=== PATIENT | female | born 1970 | race Caucasian/White ===

== ENCOUNTER 2017-06-15 15:15 | Inpatient (IN) | payer OTHER, MEDICARE ==
[~2017-06-15] VITALS: Ht 160 cm; Wt 107.8 kg
[~2017-06-15 15:15] MED LIST: COUM1TAB PO; NEXI40CA PO; ZOFR4TAB3 SL
[2017-06-15 15:48] VITALS: BP 141/76; PULSE 77; RESP 18; TEMP 98.1; O2SAT 100
[2017-06-15 17:17] VITALS: BP 153/96; PULSE 93; RESP 20; TEMP 98.2; O2SAT 96
--- NOTE | 2017-06-15 17:17 | PD ---
HPI Chief Complaint: Psychiatric Symptoms Time Seen by Provider: 16:00 Travel History International Travel<30 days: No Contact w/Intl Traveler<30days: No Traveled to known affect area: No History of Present Illness HPI 47-year-old female that presents to the ED for evaluation of Brooks act. Patient was Brooks acted by police after apparently she got out of class today and mentioned to her professor that she was suicidal and depressed. Police was called for her own safety and she was taken to [facility]. [facility] muscle would not take her because she takes Coumadin for a blood clot in her right leg. She states compliance with the medications that she takes. She denies any other medical issues. She states that she's had depression and anxiety for some time but she has never seen anybody for it or taken anything for it. She denies any prior Brooks acts. She denies any substance abuse. She states that there is nothing actively causing the symptoms worse but she states that his been going for some time. She denies any actual plan to me but per Brooks act she wanted to kill herself by walking into traffic. She denies any other medical issues. No fevers chills or sweats. PFSH Past Medical History Hx Anticoagulant Therapy: Yes Hiatal Hernia: Yes Past Surgical History Cholecystectomy: Yes Hysterectomy: Yes Social History Alcohol Use: No Tobacco Use: Yes Substance Use: No Allergies-Medications (Allergen,Severity, Reaction): Coded Allergies: Iodinated Contrast- Oral and IV Dye (Verified Allergy, Severe, 05/02/17) iodine (Verified Allergy, Severe, 05/02/17) Reported Meds & Prescriptions Reported Meds & Active Scripts Active Reported Warfarin 2.5 Mg Tab 2.5 Mg PO DAILY Review of Systems Except as stated in HPI: all other systems reviewed are Neg Physical Exam Narrative GENERAL: SKIN: Warm and dry. HEAD: Atraumatic. Normocephalic. EYES: Pupils equal and round. No scleral icterus. No injection or drainage. ENT: No nasal bleeding or discharge. Mucous membranes pink and moist. Tongue is midline. No uvula deviation. NECK: Trachea midline. No JVD. CARDIOVASCULAR: Regular rate and rhythm. No murmurs, S3, S4. RESPIRATORY: No accessory muscle use. Clear to auscultation. Breath sounds equal bilaterally. GASTROINTESTINAL: Abdomen soft, non-tender, nondistended. Hepatic and splenic margins not palpable. MUSCULOSKELETAL: Extremities without clubbing, cyanosis, or edema. No obvious deformities. Full range of motion of the upper and lower extremities bilaterally. 2+ pulses bilaterally. NEUROLOGICAL: Awake and alert. No obvious cranial nerve deficits. Motor grossly within normal limits. Five out of 5 muscle strength in the arms and legs. Normal speech. PSYCHIATRIC: Appropriate mood and affect; insight and judgment normal. Data Data Last Documented VS Vital Signs Date Time Temp Pulse Resp B/P (MAP) Pulse Ox O2 Delivery O2 Flow Rate FiO2 06/15/17 17:17 98.2 93 20 153/96 (115) 96 Orders Orders Complete Blood Count With Diff (06/15/17 16:00) Comprehensive Metabolic Panel (06/15/17 16:00) Psych Screen (06/15/17 16:00) Drug Screen, Random Urine (06/15/17 16:00) Alcohol (Ethanol) (06/15/17 16:00) Salicylates (Aspirin) (06/15/17 16:00) Tylenol (Acetaminophen) (06/15/17 16:00) Diet Regular Basic (06/15/17 Dinner) Coag Profile (06/15/17 16:19) Prothrombin Time / Inr (Pt) (06/15/17 17:33) Labs Laboratory Tests Test 06/15/17 17:30 06/15/17 17:40 White Blood Count 9.4 TH/MM3 Red Blood Count 5.41 MIL/MM3 Hemoglobin 15.6 GM/DL Hematocrit 45.9 % Mean Corpuscular Volume 84.9 FL Mean Corpuscular Hemoglobin 28.8 PG Mean Corpuscular Hemoglobin Concent 33.9 % Red Cell Distribution Width 14.3 % Platelet Count 216 TH/MM3 Mean Platelet Volume 10.0 FL Neutrophils (%) (Auto) 67.7 % Lymphocytes (%) (Auto) 22.4 % Monocytes (%) (Auto) 7.3 % Eosinophils (%) (Auto) 1.7 % Basophils (%) (Auto) 0.9 % Neutrophils # (Auto) 6.3 TH/MM3 Lymphocytes # (Auto) 2.1 TH/MM3 Monocytes # (Auto) 0.7 TH/MM3 Eosinophils # (Auto) 0.2 TH/MM3 Basophils # (Auto) 0.1 TH/MM3 CBC Comment DIFF FINAL Differential Comment Prothrombin Time 12.1 SEC Prothromb Time International Ratio 1.1 RATIO Activated Partial Thromboplast Time 28.8 SEC Blood Urea Nitrogen 14 MG/DL Creatinine 0.85 MG/DL Random Glucose 114 MG/DL Total Protein 8.3 GM/DL Albumin 3.9 GM/DL Calcium Level 9.5 MG/DL Alkaline Phosphatase 115 U/L Aspartate Amino Transf (AST/SGOT) 27 U/L Alanine Aminotransferase (ALT/SGPT) 48 U/L Total Bilirubin 0.5 MG/DL Sodium Level 140 MEQ/L Potassium Level 3.9 MEQ/L Chloride Level 104 MEQ/L Carbon Dioxide Level 29.5 MEQ/L Anion Gap 7 MEQ/L Estimat Glomerular Filtration Rate 72 ML/MIN Acetaminophen Level LESS THAN 2.0 MCG/ML Ethyl Alcohol Level LESS THAN 3 MG/DL Urine Opiates Screen NEG Urine Barbiturates Screen NEG Urine Amphetamines Screen NEG Urine Benzodiazepines Screen NEG Urine Cocaine Screen NEG Urine Cannabinoids Screen NEG MDM Medical Decision Making Medical Screen Exam Complete: Yes Emergency Medical Condition: Yes Medical Record Reviewed: Yes Interpretation(s) CBC & BMP Diagram 06/15/17 17:30 Total Protein 8.3 H, Albumin 3.9, Calcium Level 9.5, Alkaline Phosphatase 115, Aspartate Amino Transf (AST/SGOT) 27, Alanine Aminotransferase (ALT/SGPT) 48, Total Bilirubin 0.5 tox negative Differential Diagnosis Depression versus suicidal ideation versus anxiety versus adjustment disorder versus mood disorder versus bipolar disorder versus schizophrenia versus paranoid disorder versus psychosis versus substance abuse versus alcohol abuse versus alcohol induced psychosis versus homicidality addition versus cutting versus personality disorder Narrative Course 47-year-old female that presents to the ED for evaluation of psych. Patient was properly examined and was found to have signs and symptoms consistent with appears to be psychiatric illness. No significant medical distress. Labs were drawn. Patient will be medically cleared. Okay to be seen by psych. Mental health screening was discussed with the patient. Diagnosis Primary Impression: Depression Qualified Codes: F32.1 - Major depressive disorder, single episode, moderate Miguel Stack Jun 15, 2017 17:17
[2017-06-15] MEDS ORDERED: WARF-18 PO (17:25)
[2017-06-15 18:05] LABS: AUTOMATED NEUTROPHIL # 6.3 TH/MM3 (1.8-7.7); BASOPHIL # 0.1 TH/MM3 (0-0.2); BASOPHIL % 0.9 % (0.0-2.0); EOSINOPHIL # 0.2 TH/MM3 (0-0.4); EOSINOPHIL % 1.7 % (0.0-4.0); HEMATOCRIT 45.9 % (35.0-46.0); HEMO FLAGS DIFF FINAL; LYMPH % 22.4 % (9.0-44.0); LYMPHOCYTE # 2.1 TH/MM3 (1.0-4.8); MEAN CELL VOLUME 84.9 FL (80.0-100.0); MEAN CORPUSCULAR HEMOGLOBIN 28.8 PG (27.0-34.0); MEAN CORPUSCULAR HGB CONC 33.9 % (32.0-36.0); MONO % 7.3 % (0.0-8.0); NEUT % 67.7 % (16.0-70.0); PLATELET COUNT 216 TH/MM3 (150-450); RED BLOOD COUNT 5.41 MIL/MM3 (4.00-5.30); RED CELL DISTRIBUTION WIDTH 14.3 % (11.6-17.2); WHITE BLOOD COUNT 9.4 TH/MM3 (4.0-11.0)
[2017-06-15 18:26] LABS: ALT (GPT) 48 U/L (10-53); ANION GAP 7 MEQ/L (5-15); AST (GOT) 27 U/L (15-37); BICARBONATE 29.5 MEQ/L (21.0-32.0); BLOOD UREA NITROGEN 14 MG/DL (7-18); CHLORIDE 104 MEQ/L (98-107); GLOMERULAR FILTRATION RATE 72 ML/MIN (>89); POTASSIUM 3.9 MEQ/L (3.5-5.1); SODIUM (NA) 140 MEQ/L (136-145)
[2017-06-15 18:27] LABS: TOTAL BILIRUBIN ADULT 0.5 MG/DL (0.2-1.0)
[2017-06-15 18:28] LABS: ALKALINE PHOSPHATASE 115 U/L (45-117)
[2017-06-15 18:46] LABS: ACETAMINOPHEN LESS THAN 2.0 MCG/ML (10.0-30.0); ALCOHOL LESS THAN 3 MG/DL (0-5)
[2017-06-15 19:06] LABS: APTT (PATIENT) 28.8 SEC (24.3-30.1); INTERNATIONAL NORMALIZED RATIO 1.1 RATIO; PROTHROMBIN TIME - PATIENT 12.1 SEC (9.8-11.6)
[2017-06-15] MEDS ORDERED: ONDANSETRON ODT 4 MG TAB PO ONE (21:00)
[2017-06-15] MEDS ORDERED: ACETAMINOPHEN 325 MG TAB PO ONE (21:00)
[2017-06-15] MEDS ORDERED: hydrOXYzine HCL 50 MG TAB PO PRN (21:45)
[2017-06-15] MEDS ORDERED: traZODone HCL 50 MG TAB PO PRN (21:45)
[2017-06-15] MEDS ORDERED: MAGNESIUM HYDROXIDE SUSP 30 ML CUP PO PRN (21:45)
[2017-06-15] MEDS ORDERED: ALUMINUM/MAGNESIUM/SIMETH 30 ML CUP PO PRN (21:45)
[2017-06-15] MEDS ORDERED: ACETAMINOPHEN 325 MG TAB PO PRN (21:45)
[2017-06-15 22:32] VITALS: BP 148/86; PULSE 66; RESP 12
[2017-06-15 22:45] VITALS: BP 161/74; PULSE 74; RESP 16; TEMP 98.2; O2SAT 95
[2017-06-16 05:53] VITALS: BP 115/60; PULSE 61; RESP 18; TEMP 97.8; O2SAT 97
[2017-06-16] MEDS: REMOVE OLD PATCH T-DERMAL SCH (09:00)
[2017-06-16] MEDS: NICOTINE 21 MG/24 HR PATCH T-DERMAL SCH (09:00)
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
[2017-06-16] MEDS: SERTRALINE HCL 50 MG TAB PO SCH (14:45)
[2017-06-16] MEDS ORDERED: WARFARIN SOD 2.5 MG TAB PO SCH (16:00)
[2017-06-16 18:43] VITALS: BP 120/65; PULSE 68; RESP 18; TEMP 98; O2SAT 97
[2017-06-16 20:34] LABS: INTERNATIONAL NORMALIZED RATIO 1.1 RATIO; PROTHROMBIN TIME - PATIENT 12.3 SEC (9.8-11.6)
[2017-06-16 20:38] LABS: ANION GAP 6 MEQ/L (5-15); BLOOD UREA NITROGEN 12 MG/DL (7-18); CHLORIDE 102 MEQ/L (98-107); GLOMERULAR FILTRATION RATE 96 ML/MIN (>89); POTASSIUM 3.9 MEQ/L (3.5-5.1); SODIUM (NA) 138 MEQ/L (136-145)
[2017-06-16 20:49] LABS: HDL CHOLESTEROL 46.8 MG/DL (40.0-60.0); LDL CHOLESTEROL 89 MG/DL (0-99)
[2017-06-16 21:32] LABS: HEMOGLOBIN A1a 0.8 %; HEMOGLOBIN A1b 1.5 %; HEMOGLOBIN Ao 85.8 %; HEMOGLOBIN LA1C 2.1 %; HEMOGLOBIN P3 3.5 %
[2017-06-17 06:09] VITALS: BP 159/97; PULSE 61; RESP 18; TEMP 97.4
[2017-06-17] MEDS: REMOVE OLD PATCH T-DERMAL SCH (09:00)
[2017-06-17] MEDS: NICOTINE 21 MG/24 HR PATCH T-DERMAL SCH (09:00)
[2017-06-17] MEDS: SERTRALINE HCL 50 MG TAB PO SCH (09:00)
[2017-06-17] MEDS ORDERED: INFLUENZA VIRUS VACCINE (QUADRIVALENT) 0.5 ML SYR IM ONE (10:00)
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
--- NOTE | 2017-06-17 14:49 | HHI.PYPN ---
Subjective Remarks Patient seen for follow-up, chart reviewed. Patient found lying in hospital bed , calm and cooperative in interview. Patient states that she had had recent divorce no cyanosis ideations prior to her admission. Patient states that she had been feeling "a little better, happier marley". But reports having "stomach problems". Patient stated that she had been vomiting 3-4 times since admission daily occurs after eating but also recalls that she had similar episodes where she was previously depressed. She states that the [place] recent started to occur within the past 1-2 months and questions whether she has bulimia due to her wanting to lose weight. Patient reports that most the time she is having nausea prior to her emesis and reports that she was previously on pantoprazole in the past which had helped prevent further nausea or vomiting. Patient is a her mood has been "on and off" since her admission continues to feel depressed, and less having suicidal ideations 2 days ago and currently denies at this time. Review of Systems Except as stated in HPI: all other systems reviewed are Neg Mental Status Examination Appearance: Appropriate Consciousness: Alert Orientation: x4 Motor Activity: Normal gait Speech: Slow Language: Adequate Fund of Knowledge: Adequate Attention and Concentration: Adequate Memory: Unremarkable (Grossly intact on clinical exam) Mood: Sad, Other (Depressed, anxious) Affect: Sad Thought Process & Associations: Logical, Linear Thought Content: Appropriate Hallucination Type: Visual ("shadows") Delusion Type: None Suicidal Ideation: Yes (fleeting) Suicidal Plan: No Suicidal Intention: No Homicidal Ideation: No Homicidal Plan: No Homicidal Intention: No Insight: Adequate Judgment: Adequate Results Labs Labs reviewed. Test 06/16/17 19:28 Prothrombin Time 12.3 SEC Prothromb Time International Ratio 1.1 RATIO Blood Urea Nitrogen 12 MG/DL Creatinine 0.66 MG/DL Random Glucose 108 MG/DL Calcium Level 9.3 MG/DL Sodium Level 138 MEQ/L Potassium Level 3.9 MEQ/L Chloride Level 102 MEQ/L Carbon Dioxide Level 30.0 MEQ/L Anion Gap 6 MEQ/L Estimat Glomerular Filtration Rate 96 ML/MIN Hemoglobin A1c 5.8 % Triglycerides Level 139 MG/DL Cholesterol Level 164 MG/DL LDL Cholesterol 89 MG/DL HDL Cholesterol 46.8 MG/DL Cholesterol/HDL Ratio 3.50 RATIO Thyroid Stimulating Hormone 3rd Gen 0.525 uIU/ML Vitals/IOs Vital Signs Date Time Temp Pulse Resp B/P (MAP) Pulse Ox O2 Delivery O2 Flow Rate FiO2 06/17/17 06:09 97.4 61 18 159/97 (117) 06/16/17 18:43 97 06/15/17 22:32 Room Air Assessment & Plan Problem List: (1) Adjustment disorder ICD Codes: F43.20 - Adjustment disorder, unspecified Assessment & Plan Patient continues to endorse feeling depressed but denied any recurrence of suicidal ideations for the past 2 days. We'll consider increasing sertraline the patient continues to have limited response but for now we'll continue at 50 mg she has only had 2 doses. Will order labs due to patient's history of recent vomiting. Patient may have GERD which could be contributing to her nausea post meals and causing her to have emesis. We'll consult with primary medical team for recommendations. Discharge planning in progress Justification for Cont. Inpt. At risk for further decompensation if at lower level of care Discharge Planning Patient likely be able to return back to her residence with psychiatric history stable Request HC Surrog/Guard Advoc?: No Problem Qualifiers (1) Adjustment disorder: Qualified Codes: F43.23 - Adjustment disorder with mixed anxiety and depressed mood Job Prince MD Jun 17, 2017 14:49
[2017-06-17] MEDS: WARFARIN SOD 5 MG TAB PO SCH (16:00)
[2017-06-17 18:00] VITALS: BP 163/89; PULSE 76; RESP 18; TEMP 98.9; O2SAT 94
[2017-06-17 21:30] LABS: BICARBONATE 26.4 MEQ/L (21.0-32.0); POTASSIUM 3.8 MEQ/L (3.5-5.1)
[2017-06-18 05:36] VITALS: BP 133/68; PULSE 64; RESP 16; TEMP 98.1; O2SAT 93
[2017-06-18] MEDS: SERTRALINE HCL 50 MG TAB PO SCH (08:38)
[2017-06-18] MEDS: PANTOPRAZOLE SOD 40 MG DELAYED RELEASE TAB PO SCH (08:38)
[2017-06-18] MEDS: NICOTINE 21 MG/24 HR PATCH T-DERMAL SCH (08:39)
[2017-06-18] MEDS: REMOVE OLD PATCH T-DERMAL SCH (08:39)
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
[2017-06-18] MEDS: WARFARIN SOD 5 MG TAB PO SCH (16:08)
--- NOTE | 2017-06-18 16:27 | HHI.PYPN ---
Subjective Remarks Patient seen for follow-up, chart reviewed. Patient found walking on the unit was able to engage in interview today. Patient stated this feeling "better" noted to be pleased that she was able to wear her casual clothing now. Patient states that she has not eaten well since Thursday reports having difficulty sleeping and also states that she has been vomiting about 10 times since yesterday. Patient states that she is afraid to eat because of fear of wanting to vomit after. Patient also reports having some constipation. Patient noted to be very tearful about having to eat consistent meals with fear of wanting to vomit after. We'll discuss with patient and self good hydration and good nutrition which she knowledge. Review of Systems Except as stated in HPI: all other systems reviewed are Neg Mental Status Examination Appearance: Appropriate Consciousness: Alert Orientation: x4 Motor Activity: Normal gait Speech: Unremarkable Language: Adequate Fund of Knowledge: Adequate Attention and Concentration: Adequate Memory: Unremarkable (Grossly intact on clinical exam) Mood: Sad, Other (Depressed, anxious) Affect: Sad, Other (noted to be crying on 1 occasion during interview.) Thought Process & Associations: Logical, Linear Thought Content: Appropriate Hallucination Type: Visual ("shadows") Delusion Type: None Suicidal Ideation: Yes (fleeting) Suicidal Plan: No Suicidal Intention: No Homicidal Ideation: No Homicidal Plan: No Homicidal Intention: No Insight: Adequate Judgment: Adequate Results Labs Test 06/17/17 20:40 Blood Urea Nitrogen 8 MG/DL Creatinine 0.58 MG/DL Random Glucose 94 MG/DL Calcium Level 9.3 MG/DL Sodium Level 137 MEQ/L Potassium Level 3.8 MEQ/L Chloride Level 103 MEQ/L Carbon Dioxide Level 26.4 MEQ/L Anion Gap 8 MEQ/L Estimat Glomerular Filtration Rate 112 ML/MIN Vitals/IOs Vital Signs Date Time Temp Pulse Resp B/P (MAP) Pulse Ox O2 Delivery O2 Flow Rate FiO2 06/18/17 05:36 98.1 64 16 133/68 (89) 93 06/15/17 22:32 Room Air Assessment & Plan Problem List: (1) Adjustment disorder ICD Codes: F43.20 - Adjustment disorder, unspecified Assessment & Plan Patient continues to have depressed mood along with vague suicidality. Patient encouraged to maintain good hydration and nutrition on the unit. Patient be followed by medical team for poor oral intake as well as emesis. Will order a nutritional consult due to poor oral intake. We'll increase sertraline to 75 mg by mouth daily and have trazodone 50 mg by mouth at bedtime on a scheduled basis. We'll start clonazepam 0.5 mg by mouth every 12 for anxiety symptoms. Discharge planning in progress Justification for Cont. Inpt. At risk for further decompensation if at lower level of care Discharge Planning Patient likely to return back to her residence once psychiatrically stable. Request HC Surrog/Guard Advoc?: No Problem Qualifiers (1) Adjustment disorder: Qualified Codes: F43.23 - Adjustment disorder with mixed anxiety and depressed mood Job Prince MD Jun 18, 2017 16:27
[2017-06-18] MEDS ORDERED: PILL SPLITTER OTHER PRN (16:30)
[2017-06-18] MEDS: traZODone HCL 50 MG TAB PO SCH ×2 (16:55→21:47)
[2017-06-18 16:56] VITALS: BP 144/66; PULSE 87; RESP 17; TEMP 98.9; O2SAT 95
[2017-06-18] MEDS: clonazePAM 0.5 MG TAB PO SCH (21:47)
[2017-06-19 06:35] VITALS: BP 134/60; PULSE 61; RESP 18; TEMP 97.5; O2SAT 95
[2017-06-19] MEDS: PANTOPRAZOLE SOD 40 MG DELAYED RELEASE TAB PO SCH (08:24)
[2017-06-19] MEDS: NICOTINE 21 MG/24 HR PATCH T-DERMAL SCH (08:25)
[2017-06-19] MEDS: REMOVE OLD PATCH T-DERMAL SCH (08:25)
[2017-06-19] MEDS: clonazePAM 0.5 MG TAB PO SCH ×2 (08:25→20:22)
[2017-06-19] MEDS ORDERED: SERTRALINE HCL 50 MG TAB PO SCH (09:00)
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
--- NOTE | 2017-06-19 13:14 | HHI.PYPN ---
Subjective Remarks Patient seen for follow-up, chart reviewed. Patient found participating in group activities. Patient states that she is feeling "good", eating more but still having nausea after eating. She states feeling less nauseous "alot better ", denies any SI, more energy. She states that she was visited by her ex- which went well. Review of Systems Except as stated in HPI: all other systems reviewed are Neg Mental Status Examination Appearance: Appropriate Consciousness: Alert Orientation: x4 Motor Activity: Normal gait Speech: Unremarkable Language: Adequate Fund of Knowledge: Adequate Attention and Concentration: Adequate Memory: Unremarkable (Grossly intact on clinical exam) Mood: Sad (less so today), Anxious (less so today) Affect: Sad (less today) Thought Process & Associations: Logical, Linear Thought Content: Appropriate Hallucination Type: Visual ("shadows") Delusion Type: None Suicidal Ideation: No Suicidal Plan: No Suicidal Intention: No Homicidal Ideation: No Homicidal Plan: No Homicidal Intention: No Insight: Adequate Judgment: Adequate Results Vitals/IOs Vital Signs Date Time Temp Pulse Resp B/P (MAP) Pulse Ox O2 Delivery O2 Flow Rate FiO2 06/19/17 06:35 97.5 61 18 134/60 (84) 95 06/15/17 22:32 Room Air Assessment & Plan Problem List: (1) Adjustment disorder ICD Codes: F43.20 - Adjustment disorder, unspecified Assessment & Plan Patient continues to have depressed mood with some improvement and less suicide ideations. Will increase sertraline to 100mg PO daily. Continue to monitor for emesis and PO intake. Discharge planning in progress. Justification for Cont. Inpt. At risk for further decompensation if at lower level of care. Discharge Planning Patient to go back to her residence once psychiatrically stable. Request HC Surrog/Guard Advoc?: No Problem Qualifiers (1) Adjustment disorder: Qualified Codes: F43.23 - Adjustment disorder with mixed anxiety and depressed mood Job Prince MD Jun 19, 2017 13:14
[2017-06-19 15:57] LABS: INTERNATIONAL NORMALIZED RATIO 1.4 RATIO; PROTHROMBIN TIME - PATIENT 15.6 SEC (9.8-11.6)
[2017-06-19] MEDS: WARFARIN SOD 5 MG TAB PO SCH (15:57)
[2017-06-19 18:14] VITALS: BP 104/54; PULSE 78; RESP 18; TEMP 99.3; O2SAT 97
[2017-06-19] MEDS: traZODone HCL 50 MG TAB PO SCH (20:22)
[2017-06-20 05:31] VITALS: BP 123/60; PULSE 70; RESP 18; TEMP 97.6; O2SAT 95
[2017-06-20 07:49] LABS: INTERNATIONAL NORMALIZED RATIO 1.6 RATIO; PROTHROMBIN TIME - PATIENT 17.8 SEC (9.8-11.6)
[2017-06-20] MEDS: SERTRALINE HCL 50 MG TAB PO SCH (09:00)
[2017-06-20] MEDS: REMOVE OLD PATCH T-DERMAL SCH (09:00)
[2017-06-20] MEDS: NICOTINE 21 MG/24 HR PATCH T-DERMAL SCH (09:00)
[2017-06-20] MEDS: PANTOPRAZOLE SOD 40 MG DELAYED RELEASE TAB PO SCH (09:00)
[2017-06-20] MEDS: clonazePAM 0.5 MG TAB PO SCH ×2 (09:00→21:10)
--- NOTE | 2017-06-20 14:46 | HHI.PYPN ---
Subjective Remarks Patient was seen and case discussed with nursing. Patient is irritable loud and oppositional. Affect is at times labile and later constricted. She is adamant been going home. We discussed the process and she was offered a right of release. Compliant with medications and tolerating them well Mental Status Examination Appearance: Appropriate Consciousness: Alert Orientation: x4 Motor Activity: Normal gait Speech: Unremarkable Language: Adequate Fund of Knowledge: Adequate Attention and Concentration: Adequate Memory: Unremarkable (Grossly intact on clinical exam) Mood: Sad (less so today), Anxious (less so today) Affect: Labile, Blunt, Other (irritable) Thought Process & Associations: Logical, Linear Thought Content: Appropriate Hallucination Type: Visual ("shadows") Delusion Type: None Suicidal Ideation: No Suicidal Plan: No Suicidal Intention: No Homicidal Ideation: No Homicidal Plan: No Homicidal Intention: No Insight: Adequate Judgment: Adequate Results Labs Test 06/20/17 06:30 Prothrombin Time 17.8 SEC Prothromb Time International Ratio 1.6 RATIO Vitals/IOs Vital Signs Date Time Temp Pulse Resp B/P (MAP) Pulse Ox O2 Delivery O2 Flow Rate FiO2 06/20/17 05:31 97.6 70 18 123/60 (81) 95 Assessment & Plan Problem List: (1) Adjustment disorder ICD Codes: F43.20 - Adjustment disorder, unspecified Assessment & Plan Continue current treatment plan Justification for Cont. Inpt. Patient would decompensate in a less restrictive setting Request HC Surrog/Guard Advoc?: No Problem Qualifiers (1) Adjustment disorder: Qualified Codes: F43.23 - Adjustment disorder with mixed anxiety and depressed mood Rito Dover DO Jun 20, 2017 14:46
[2017-06-20] MEDS: WARFARIN SOD 5 MG TAB PO SCH (17:28)
[2017-06-20] MEDS: traZODone HCL 50 MG TAB PO SCH (21:10)
[2017-06-21 05:37] VITALS: BP 146/61; PULSE 61; RESP 18; TEMP 98; O2SAT 92
[2017-06-21] MEDS: PANTOPRAZOLE SOD 40 MG DELAYED RELEASE TAB PO SCH (08:31)
[2017-06-21] MEDS: SERTRALINE HCL 50 MG TAB PO SCH (08:31)
[2017-06-21] MEDS: clonazePAM 0.5 MG TAB PO SCH ×2 (08:31→21:24)
[2017-06-21] MEDS: REMOVE OLD PATCH T-DERMAL SCH (09:00)
[2017-06-21] MEDS: NICOTINE 21 MG/24 HR PATCH T-DERMAL SCH (09:00)
--- NOTE | 2017-06-21 12:13 | HHI.PYPN ---
Subjective Remarks She was seen and case discussed with nursing. Patient has had nausea throughout the day with mild abdominal pain for the past couple of days. Patient had been followed by medicine. She threw up once this morning. Patient remains labile and perseverative on going home. Insight remains poor Mental Status Examination Appearance: Appropriate Consciousness: Alert Orientation: x4 Motor Activity: Normal gait Speech: Unremarkable Language: Adequate Fund of Knowledge: Adequate Attention and Concentration: Adequate Memory: Unremarkable (Grossly intact on clinical exam) Mood: Sad (less so today), Anxious (less so today) Affect: Sad, Blunt, Other (irritable) Thought Process & Associations: Logical, Linear Thought Content: Appropriate Hallucination Type: Visual ("shadows") Delusion Type: None Suicidal Ideation: No Suicidal Plan: No Suicidal Intention: No Homicidal Ideation: No Homicidal Plan: No Homicidal Intention: No Insight: Poor Judgment: Poor Results Vitals/IOs Vital Signs Date Time Temp Pulse Resp B/P (MAP) Pulse Ox O2 Delivery O2 Flow Rate FiO2 06/21/17 05:37 98.0 61 18 146/61 (89) 92 Assessment & Plan Problem List: (1) Adjustment disorder ICD Codes: F43.20 - Adjustment disorder, unspecified Assessment & Plan One time dose of Zofran, if vomiting continues, we'll consult medicine, vitals every 6 hours Justification for Cont. Inpt. Patient would decompensate in a less restrictive setting Request HC Surrog/Guard Advoc?: No Problem Qualifiers (1) Adjustment disorder: Qualified Codes: F43.23 - Adjustment disorder with mixed anxiety and depressed mood Rito Dover DO Jun 21, 2017 12:13
[2017-06-21] MEDS ORDERED: ONDANSETRON HCL 4 MG/2 ML VIAL IV PUSH ONE (12:30)
[2017-06-21 12:41] VITALS: BP 143/70; PULSE 73
[2017-06-21] MEDS ORDERED: ONDANSETRON HCL 4 MG/2 ML VIAL IM ONE (12:45)
[2017-06-21 16:48] VITALS: BP 139/76; PULSE 62; RESP 18; TEMP 98; O2SAT 95
[2017-06-21 17:20] LABS: INTERNATIONAL NORMALIZED RATIO 1.8 RATIO; PROTHROMBIN TIME - PATIENT 20.4 SEC (9.8-11.6)
[2017-06-21] MEDS: WARFARIN SOD 5 MG TAB PO SCH (17:23)
[2017-06-21] MEDS: traZODone HCL 50 MG TAB PO SCH (21:24)
[2017-06-22 01:00] VITALS: BP 125/79; PULSE 60; RESP 16; TEMP 97.9; O2SAT 93
[2017-06-22 06:15] VITALS: BP 120/78; PULSE 64; RESP 16; TEMP 98; O2SAT 92
[2017-06-22] MEDS: clonazePAM 0.5 MG TAB PO SCH (08:40)
[2017-06-22] MEDS: PANTOPRAZOLE SOD 40 MG DELAYED RELEASE TAB PO SCH (08:40)
[2017-06-22] MEDS: SERTRALINE HCL 50 MG TAB PO SCH (08:40)
[2017-06-22] MEDS: NICOTINE 21 MG/24 HR PATCH T-DERMAL SCH (08:42)
[2017-06-22] MEDS: REMOVE OLD PATCH T-DERMAL SCH (08:42)
[2017-06-22] MEDS ORDERED: CLON.5 PO (12:32)
[2017-06-22] MEDS ORDERED: SERT-129 PO (12:32)
[2017-06-22] MEDS ORDERED: COUM5TAB PO (12:32)
[2017-06-22] MEDS ORDERED: PANT40TA3 PO (12:32)
[2017-06-22] MEDS ORDERED: TRAZ50TA12 PO (12:32)
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
== END 2017-06-22 14:58 | disposition home or self-care (01) | DRG 885 ==
LOC: NEDAMB 15:15 → NEDA 21:46 → H260 22:47
PROVIDERS: ADMIT Student in an Organized Health Care Education/Training Program; ATTEND Student in an Organized Health Care Education/Training Program
DX: F32.2 Major depressive disorder, single episode, severe without psychotic features (principal); R45.851 Suicidal ideations; F43.23 Adjustment disorder with mixed anxiety and depressed mood; F17.210 Nicotine dependence, cigarettes, uncomplicated; R11.2 Nausea with vomiting, unspecified; F43.0 Acute stress reaction; K21.9 Gastro-esophageal reflux disease without esophagitis; Z86.718 Personal history of other venous thrombosis and embolism; Z79.01 Long term (current) use of anticoagulants; Z91.14 Patient's other noncompliance with medication regimen
CPT/HCPCS: 80048; 80053; 80061; 80307; 83036; 84443; 84703; 85025; 85610; 85730; J2405

== ENCOUNTER 2017-09-14 12:38 | Emergency (ER) | payer OTHER, MEDICARE ==
[~2017-09-14] VITALS: Ht 157.5 cm; Wt 91.0 kg
[~2017-09-14 12:38] MED LIST changes: +CARA1TAB6 PO; +CLON.5 PO; -COUM1TAB PO; +COUM5TAB PO; +FAMO1TAB37 PO; -NEXI40CA PO; +PANT40TA3 PO; +SERT-129 PO; +TRAZ50TA12 PO; +WARF-18 PO; -ZOFR4TAB3 SL
[2017-09-14 12:43] VITALS: BP 122/62; PULSE 79; RESP 16; TEMP 98.3; O2SAT 97
--- NOTE | 2017-09-14 14:02 | PD ---
HPI Chief Complaint: Psychiatric Symptoms Time Seen by Provider: 13:48 Travel History International Travel<30 days: No Contact w/Intl Traveler<30days: No Traveled to known affect area: No History of Present Illness HPI 47 year old female presents to the emergency department under [place] act by local police. Patient was seen earlier at the [facility] for hematemesis. She was medically cleared. It appears that afterwards, she was Brooks acted and was taken to [facility]. She reports no further hematemesis or vomiting since being seen earlier. [facility] sent her here because she is on Coumadin for chronic DVT for 2 years. They state that is beyond their scope of practice. The patient states that her boyfriend got kicked out of his mother's house and he moved in with her. His mother called his geological technical officer who she told him he had to move back in with his mother or he be taken [place]. The patient was moving out this morning when the patient became agitated and upset and threatened to kill her self. Patient states she no longer has any suicidal thoughts. She denies any attempt to hurt herself at this time. Moderate severity. PFSH Past Medical History Hx Anticoagulant Therapy: Yes Arthritis: No Asthma: No Anxiety: Yes Depression: Yes Heart Rhythm Problems: No Cancer: No Cardiovascular Problems: No High Cholesterol: No Chest Pain: No Congestive Heart Failure: No COPD: No Cerebrovascular Accident: No Diminished Hearing: No Deep Vein Thrombosis: Yes Endocrine: No Genitourinary: No Hiatal Hernia: Yes Immune Disorder: No Musculoskeletal: Yes Neurologic: No Psychiatric: No Reproductive: No Respiratory: No Immunizations Current: Yes Migraines: No Seizures: No Sleep Apnea: No ?: Not Tubal Ligation: Yes Past Surgical History Abdominal Surgery: Yes Cardiac Surgery: No Cholecystectomy: Yes Ear Surgery: No Endocrine Surgery: No Eye Surgery: No Genitourinary Surgery: No Gynecologic Surgery: Yes Hysterectomy: Yes Oral Surgery: No Thoracic Surgery: No Social History Alcohol Use: Yes Tobacco Use: No Substance Use: No Allergies-Medications (Allergen,Severity, Reaction): Coded Allergies: Iodinated Contrast- Oral and IV Dye (Verified Allergy, Severe, 09/14/17) iodine (Verified Allergy, Severe, 09/14/17) Reported Meds & Prescriptions Reported Meds & Active Scripts Active Carafate (Sucralfate) 1 Gram Tab 1 Gm PO QID On empty stomach Pepcid (Famotidine) 20 Mg Tab 20 Mg PO BID Pantoprazole (Pantoprazole Sodium) 40 Mg Tab 40 Mg PO DAILY 30 Days Trazodone (Trazodone HCl) 50 Mg Tab 50 Mg PO HS PRN 15 Days Sertraline (Sertraline HCl) 100 Mg Tab 100 Mg PO DAILY Klonopin (Clonazepam) 0.5 Mg Tab 0.5 Mg PO Q12HR 30 Days Coumadin (Warfarin) 5 Mg Tab 5 Mg PO DAILY@1600 30 Days Reported Warfarin 2.5 Mg Tab 2.5 Mg PO DAILY Review of Systems Except as stated in HPI: all other systems reviewed are Neg Physical Exam Narrative GENERAL: Well-nourished, well-developed female patient, ambulatory. Afebrile. SKIN: Focused skin assessment warm/dry. HEAD: Normocephalic. Atraumatic. EYES: No scleral icterus. No injection or drainage. NECK: Supple, trachea midline. No JVD or lymphadenopathy. CARDIOVASCULAR: Regular rate and rhythm without murmurs, gallops, or rubs. RESPIRATORY: Breath sounds equal bilaterally. No accessory muscle use. Lungs sounds are clear to auscultation. GASTROINTESTINAL: Abdomen soft, non-tender, nondistended. MUSCULOSKELETAL: No cyanosis, or edema. BACK: Nontender without obvious deformity. No CVA tenderness. PSYCHIATRIC: No delusional thought processes. No hallucinations. Data Data Last Documented VS Vital Signs Date Time Temp Pulse Resp B/P (MAP) Pulse Ox O2 Delivery O2 Flow Rate FiO2 09/14/17 12:43 98.3 79 16 122/62 (82) 97 Orders Orders Prothrombin Time / Inr (Pt) (09/14/17 13:56) Drug Screen, Random Urine (09/14/17 13:56) Alcohol (Ethanol) (09/14/17 13:56) Psych Screen (09/14/17 13:56) Labs Laboratory Tests Test 09/14/17 14:15 09/14/17 14:16 Prothrombin Time 10.8 SEC Prothromb Time International Ratio 1.1 RATIO Ethyl Alcohol Level LESS THAN 3 MG/DL Urine Opiates Screen NEG Urine Barbiturates Screen NEG Urine Amphetamines Screen NEG Urine Benzodiazepines Screen NEG Urine Cocaine Screen NEG Urine Cannabinoids Screen NEG MDM Medical Decision Making Medical Screen Exam Complete: Yes Emergency Medical Condition: Yes Medical Record Reviewed: Yes Differential Diagnosis Anxiety versus depression versus adjustment disorder Narrative Course 47 year old female presents to the emergency Department under Brooks act by local police for suicidal ideation. I reviewed labs earlier from earlier today when she was at [facility]. CBC is unremarkable. CMP is unremarkable. Lipase is 180. Beta hCG is less than 1. PT/INR, urine drug screen, alcohol level are ordered and pending. Psych screen is ordered. PT/INR is 10.8/1.1. UDS is negative. Alcohol level is less than 3. Patient is medically cleared for psychiatric screening and disposition. Diagnosis Primary Impression: Depression Qualified Codes: F32.9 - Major depressive disorder, single episode, unspecified Condition: Stable Suzette Kincaid Sep 14, 2017 14:02
[2017-09-14 14:56] LABS: INTERNATIONAL NORMALIZED RATIO 1.1 RATIO; PROTHROMBIN TIME - PATIENT 10.8 SEC (9.8-11.6)
--- NOTE | 2017-09-14 20:31 | PD ---
History of Present Illness Chief Complaint: Psychiatric Symptoms Time Seen by Provider: 20:00 Travel History International Travel<30 Days: No Contact w/Intl Traveler<30days: No Known affected area: No Legal Status Legal Status: Brooks Act Brooks Act Signed By: Hong Hua History of Present Illness: History of Present Illness HPI 47 year old female with previous psychiatric history of adjustment disorder, previously being treated with Zoloft who presents to the emergency department under Brooks act by local police. The Brooks act report alleges that the police was called to the residence and when they arrived there they found the patient actively yelling. It appears she was involved in an argument with her boyfriend and her boyfriend's mother. The boyfriend reported that he was in the process of moving out which she did not want. He also reported that she was attempting to grab a knife from the kitchen and stated she wanted to kill herself. Electronic medical record reviewed and previous admission to [facility] psychiatry on June 2017. At that time she was also under Brooks act for suicidal ideation. She is placed on medications at that time but discontinuing it because her insurance would not pay for the medication. Current toxicology is negative for any substances. The patient is seen in [facility]. She is alert and oriented female who is maintaining hygiene and grooming. She is cooperative and engaging. There is no hallucinations, no delusions and no paranoia. No marcus or hypomania. She denies any suicidal or homicidal ideation. She states that she did not states she wanted to kill herself and that she believes that it's her boyfriend's mother who has instigated this whole situation. She states that her boyfriend' s mother does not want them to be together and possibly called her boyfriend's correctional officer chief to reported that he had moved out of her house. The patient reports that her mood is not significantly depressed or anxious. Reports she is sleeping well, eating well, good level of energy. She is enrolled in school to complete her GED at this time. The patient is requesting to be discharge and presents no criteria to retain her here under an involuntary status. . PFSH Past Medical History Hx Anticoagulant Therapy: Yes Arthritis: No Asthma: No Anxiety: Yes Depression: Yes Heart Rhythm Problems: No Cancer: No Cardiovascular Problems: No High Cholesterol: No Chest Pain: No Congestive Heart Failure: No COPD: No Cerebrovascular Accident: No Diminished Hearing: No Deep Vein Thrombosis: Yes Endocrine: No Genitourinary: No Hiatal Hernia: Yes Immune Disorder: No Musculoskeletal: Yes Neurologic: No Psychiatric: No Reproductive: No Respiratory: No Immunizations Current: Yes Migraines: No Seizures: No Sleep Apnea: No ?: Not Tubal Ligation: Yes Past Surgical History Abdominal Surgery: Yes Cardiac Surgery: No Cholecystectomy: Yes Ear Surgery: No Endocrine Surgery: No Eye Surgery: No Genitourinary Surgery: No Gynecologic Surgery: Yes Hysterectomy: Yes Oral Surgery: No Thoracic Surgery: No Psychiatric History Psychiatric History Hx Psychiatric Treatment: Patient was treated at [facility] psychiatry unit. Did not follow up with treatment due to insurance difficulties. No history of any previous suicide attempt. Has no weapons in the home. No legal history History of Inpatient Treatment: No Guns or firearms in home: No Social History Divorce. Lives with her son. Receives SSI. Is studying for her GED. Hx Alcohol Use: Yes Hx Tobacco Use: No Hx Substance Use: Yes Substance Use Type: Alcohol, Nicotine/Cigarettes Other Substances Used: "I drink alcohol occasionally." Hx of Substance Use Treatment: No Allergies-Medications (Allergen,Severity, Reaction): Coded Allergies: Iodinated Contrast- Oral and IV Dye (Verified Allergy, Severe, 09/14/17) iodine (Verified Allergy, Severe, 09/14/17) Reported Meds & Prescriptions Reported Meds & Active Scripts Active Pepcid (Famotidine) 20 Mg Tab 20 Mg PO BID Pantoprazole (Pantoprazole Sodium) 40 Mg Tab 40 Mg PO DAILY 30 Days Trazodone (Trazodone HCl) 50 Mg Tab 50 Mg PO HS PRN 15 Days Sertraline (Sertraline HCl) 100 Mg Tab 100 Mg PO DAILY Klonopin (Clonazepam) 0.5 Mg Tab 0.5 Mg PO Q12HR 30 Days Coumadin (Warfarin) 5 Mg Tab 5 Mg PO DAILY@1600 30 Days Reported Warfarin 2.5 Mg Tab 2.5 Mg PO DAILY Review of Systems Except as stated in HPI: all other systems reviewed are Neg Mental Status Examination Appearance: Appropriate (maintaining hygiene and grooming) Consciousness: Alert Orientation: x4 Motor Activity: Normal gait Speech: Unremarkable Language: Adequate Fund of Knowledge: Adequate Attention and Concentration: Adequate Memory: Unremarkable Mood: Appropriate Affect: Appropriate Thought Process & Associations: Intact, Logical, Goal directed Thought Content: Appropriate Hallucination Type: None Delusion Type: None Suicidal Ideation: No Suicidal Plan: No Suicidal Intention: No Homicidal Ideation: No Homicidal Plan: No Homicidal Intention: No Insight: Adequate Judgment: Adequate MDM Medical Decision Making Medical Record Reviewed: Yes Assessment/Plan 47 year old female with previous psychiatric history of adjustment disorder, previously being treated with Zoloft who presents to the emergency department under Brooks act by local police. The Brooks act report alleges that the police was called to the residence and when they arrived there they found the patient actively yelling. It appears she was involved in an argument with her boyfriend and her boyfriend's mother. The boyfriend reported that he was in the process of moving out which she did not want. He also reported that she was attempting to grab a knife from the kitchen and stated she wanted to kill herself. The patient denies that she had made any statements indicating that she wanted to harm herself. She also states that her boyfriend's mother does not want him to be living with her and therefore they were involved in an argument. The patient does not present any indication of any unstable mental illness. There is no suicidal or homicidal ideation, intent or plan. There is no psychosis and no marcus. The patient is requesting discharge at this time and I find no reason to keep her under a Brooks act. She is provided psychoeducation. The Brooks act is lifted. Psychiatrically clear for discharge from ED. Orders Orders Prothrombin Time / Inr (Pt) (09/14/17 13:56) Drug Screen, Random Urine (09/14/17 13:56) Alcohol (Ethanol) (09/14/17 13:56) Psych Screen (09/14/17 13:56) Results Vital Signs Date Time Temp Pulse Resp B/P (MAP) Pulse Ox O2 Delivery O2 Flow Rate FiO2 09/14/17 12:43 98.3 79 16 122/62 (82) 97 Laboratory Tests Test 09/14/17 14:15 09/14/17 14:16 Prothrombin Time 10.8 Prothromb Time International Ratio 1.1 Ethyl Alcohol Level LESS THAN 3 Urine Opiates Screen NEG Urine Barbiturates Screen NEG Urine Amphetamines Screen NEG Urine Benzodiazepines Screen NEG Urine Cocaine Screen NEG Urine Cannabinoids Screen NEG Diagnosis Primary Impression: Adjustment disorder Ruled Out: Depression Psychiatrically Cleared: Yes Med/ Other Pt Specific Info: No Meds Exist/No RX given Disposition: 01 DISCHARGE HOME Condition: Stable Problem Qualifiers Primary Impression: Adjustment disorder Qualified Codes: F43.20 - Adjustment disorder, unspecified Kimberly Sheets [facility] Sep 14, 2017 20:31
== END 2017-09-14 22:16 | disposition home or self-care (01) ==
LOC: NEDAMB 12:38 → NEPJ 22:16
DX: F43.20 Adjustment disorder, unspecified (principal); F41.9 Anxiety disorder, unspecified; F32.9 Major depressive disorder, single episode, unspecified; Z86.718 Personal history of other venous thrombosis and embolism; Z79.01 Long term (current) use of anticoagulants; Z79.899 Other long term (current) drug therapy
CPT/HCPCS: 80307; 85610; 99284

== ENCOUNTER 2017-09-15 03:51 | Inpatient (IN) | payer MEDICARE, OTHER ==
[~2017-09-15] VITALS: Ht 157.5 cm; Wt 91.0 kg
[~2017-09-15 03:51] MED LIST changes: -CARA1TAB6 PO
[2017-09-15 04:10] VITALS: BP 112/71; PULSE 71; RESP 16; TEMP 98.7; O2SAT 98
--- NOTE | 2017-09-15 05:01 | PD ---
HPI Chief Complaint: Medical Clearance Time Seen by Provider: 04:29 Travel History International Travel<30 days: No Contact w/Intl Traveler<30days: No Traveled to known affect area: No History of Present Illness HPI 47-year-old female presents to emergency department under Brooks act by PD. PD had responded to the house after they were called out for domestic issues. The patient allegedly had placed a knife to her arm stain that she was cut herself. She then locked herself in her room stating that if they did not leave she was going to hurt herself. The patient here states that she was merely upset. She is currently going through a divorce with her . She states that this started divorce proceedings to months ago. There going before the mingler operator in a few weeks. She did not have any intention on hurting herself. She had gotten upset after having a argument with her daughter over her roommate. Patient states that she was just seen in the ER and discharged. Patient denies any toxic ingestions. No homicidal ideation. No fever or chills. No chest pressure. No nausea vomiting. No abdominal pain or urine symptoms. PFSH Past Medical History Hx Anticoagulant Therapy: Yes Arthritis: No Asthma: No Anxiety: Yes Depression: Yes Heart Rhythm Problems: No Cancer: No Cardiovascular Problems: No High Cholesterol: No Chest Pain: No Congestive Heart Failure: No COPD: No Cerebrovascular Accident: No Diminished Hearing: No Deep Vein Thrombosis: Yes Endocrine: No Genitourinary: No Hiatal Hernia: Yes Immune Disorder: No Musculoskeletal: Yes Neurologic: No Psychiatric: No Reproductive: No Respiratory: No Immunizations Current: Yes Migraines: No Seizures: No Sleep Apnea: No ?: Not Tubal Ligation: Yes Past Surgical History Abdominal Surgery: Yes Cardiac Surgery: No Cholecystectomy: Yes Ear Surgery: No Endocrine Surgery: No Eye Surgery: No Genitourinary Surgery: No Gynecologic Surgery: Yes Hysterectomy: Yes Oral Surgery: No Thoracic Surgery: No Other Surgery: Yes Social History Alcohol Use: Yes Tobacco Use: No Substance Use: Yes Allergies-Medications (Allergen,Severity, Reaction): Coded Allergies: Iodinated Contrast- Oral and IV Dye (Verified Allergy, Severe, 09/15/17) iodine (Verified Allergy, Severe, 09/15/17) Reported Meds & Prescriptions Reported Meds & Active Scripts Active Pepcid (Famotidine) 20 Mg Tab 20 Mg PO BID Pantoprazole (Pantoprazole Sodium) 40 Mg Tab 40 Mg PO DAILY 30 Days Trazodone (Trazodone HCl) 50 Mg Tab 50 Mg PO HS PRN 15 Days Sertraline (Sertraline HCl) 100 Mg Tab 100 Mg PO DAILY Klonopin (Clonazepam) 0.5 Mg Tab 0.5 Mg PO Q12HR 30 Days Coumadin (Warfarin) 5 Mg Tab 5 Mg PO DAILY@1600 30 Days Reported Warfarin 2.5 Mg Tab 2.5 Mg PO DAILY Review of Systems General / Constitutional: No: Fever Eyes: No: Visual changes HENT: No: Headaches Cardiovascular: No: Chest Pain or Discomfort Respiratory: No: Shortness of Breath Gastrointestinal: No: Abdominal Pain Genitourinary: No: Dysuria Musculoskeletal: No: Pain Skin: No Rash Neurologic: No: Weakness Psychiatric: Positive: Depression, Mood Disorder, No: Anxiety, Suicidal Ideations, Disorder of Thought, Substance Abuse, Homicidal Ideation Endocrine: No: Polydipsia Hematologic/Lymphatic: No: Easy Bruising Physical Exam Narrative GENERAL: Well-nourished, well-developed patient. SKIN: Warm and dry. HEAD: Normocephalic and atraumatic. EYES: No scleral icterus. No injection or drainage. Right eye strabismus ENT: No nasal drainage noted. Mucous membranes pink. Airway patent. NECK: Supple, trachea midline. Moves head freely without obvious discomfort. CARDIOVASCULAR: Regular rate and rhythm without murmurs, gallops, or rubs. RESPIRATORY: Breath sounds equal bilaterally. No accessory muscle use. GASTROINTESTINAL: Abdomen soft, non-tender, nondistended. EXTREMITIES: No cyanosis or edema. BACK: Nontender without obvious deformity. No CVA tenderness. NEURO: Patient is alert and oriented. no sensorimotor deficits. Nonfocal. Normal speech. PSYCH: No delusions. No auditory or visual hallucinations. Data Data Last Documented VS Vital Signs Date Time Temp Pulse Resp B/P (MAP) Pulse Ox O2 Delivery O2 Flow Rate FiO2 09/15/17 04:10 98.7 71 16 112/71 (85) 98 Room Air Orders Orders Psych Screen (09/15/17 04:54) MDM Medical Decision Making Medical Screen Exam Complete: Yes Emergency Medical Condition: Yes Medical Record Reviewed: Yes Differential Diagnosis MDM: High Differential diagnoses: Schizophrenia, schizoaffective disorder, bipolar, anxiety, depression, adjustment reaction, mood disorder NOS, ODD, depressive disorder NOS, dementia, dementia with agitation, psychosis NOS, substance induced mood disorder, DMDD, Asperger syndrome, infection,electrolyte abnormality, malingering. Narrative Course The patient has been medically cleared. She was just seen in the ER earlier yesterday. There is no indication for laboratory testing at this time. This is medical clearance for psychiatric admission Diagnosis Primary Impression: Medical clearance for psychiatric admission Condition: Omar Magaña Sep 15, 2017 05:01
[2017-09-15] MEDS ORDERED: diphenhydrAMINE HCL 50 MG/ML VIAL IM PRN ×2 (17:15)
[2017-09-15] MEDS ORDERED: LORazepam 1 MG TAB PO PRN (17:15)
[2017-09-15] MEDS ORDERED: ACETAMINOPHEN 325 MG TAB PO PRN (17:15)
[2017-09-15] MEDS ORDERED: LORazepam 2 MG/ML VIAL IM PRN (17:15)
[2017-09-15] MEDS ORDERED: MAGNESIUM HYDROXIDE SUSP 30 ML CUP PO PRN (17:15)
[2017-09-15] MEDS ORDERED: diphenhydrAMINE HCL 50 MG CAP PO PRN (17:15)
[2017-09-15] MEDS ORDERED: ALUMINUM/MAGNESIUM/SIMETH 30 ML CUP PO PRN (17:15)
--- NOTE | 2017-09-15 17:17 | HHI.HP ---
Provisional Diagnosis Admission Date Sep 15, 2017 at 17:07 [place] I. Brief psychotic disorder Certification of Person's Competence To Provide Express and Informed Consent I have personally examined Martina Sullivan , a person being served at [facility] on, Sep 15, 2017 17:13. Express and informed consent means consent voluntarily given in writing, by a competent person, after sufficient explanation and disclosure of the subject matter involved to enable the person to make a knowing and willful decision without any element of force, fraud, deceit, duress, or other form of constraint or coercion. This person is 18 years of age or older, is not now known to be incompetent to consent to treatment with a guardian advocate, and does not have a health care surrogate or proxy currently making medical treatment decisions. I have found this person to be one of the following: [x] Competent to provide express and informed consent, as defined above, for voluntary admission to this facility and is competent to provide express and informed consent for treatment. He/she has the consistent capacity to make well reasoned, willful, and knowing decisions concerning his or her medical or mental health treatment. The person fully and consistently understands the purpose of the admission for examination/placement and is fully capable of personally exercising all rights assured [place] Incompetent to provide express and informed consent to voluntary admission, and this is incompetent to provide express and informed consent to treatment. The person must be transferred to involuntary status and a petition for a guardian advocate filed with the Circuit Court. [] Refusing to provide express and informed consent to voluntary admission but is competent to provide express and informed consent for treatment. The person must be discharged or transferred to involuntary status. Form shall be completed within 24 hours of a person's arrival at the receiving facility and filed in the clinical record of each person: 1. Admitted on a voluntary basis 2. Permitted to provide express and informed consent to his/her own treatment 3. Allowed to transfer from involuntary to voluntary status 4. Prior to permitting a person to consent to his or her own treatment after having been previously found incompetent to consent to treatment. History of Present Illness Capacity: Has Capacity HPI 47-year-old female presents under a Brooks act for the second day in a row allegedly threatening to harm herself with a knife. On this occasion, law enforcement was called by the patient's daughter. According to the Brooks act, the patient placed a knife to her arm like she was going to cut herself today. Thursday attempted to contact her, she locked herself in her bedroom with a knife. She told the law enforcement officers if they did not leave she was going to hurt herself. She also indicated the presence of law enforcement officers made her want to hurt herself even more. Upon interview, the patient denies holding a knife to her arm. She denies being suicidal or holding a knife to her arm yesterday. However, she does admit to feeling as if people are trying to harm her. She also feels people are driving around her neighborhood, looking at her. She states when she goes out in public, people look at her and then use their cell phone to text other people about her. This physician spoke with the patient's nurse, Abraham, who called the patient's adult daughter and verified that the patient held a knife to her arm and threatened to harm herself. The patient reports she has been carrying a knife in her purse for the last 6 months because she is afraid of people trying to harm her. Patient's toxicology screen is negative. Review of Systems Psychiatric: COMPLAINS OF: Suicidal Ideation, Delusions Except as stated in HPI: all other systems reviewed are Neg Past Psych History Psychological trauma history Unknown. Patient is getting from her and they are at this time. Violence risk - others (6 mos) Moderate. Violence risk - self (6 mos) High. Substance Abuse History Drugs/Alcohol past 12 months Denied Past Family Social History Coded Allergies: Iodinated Contrast- Oral and IV Dye (Verified Allergy, Severe, 09/15/17) iodine (Verified Allergy, Severe, 09/15/17) Active Scripts Pantoprazole (Pantoprazole) 40 Mg Tab, 40 MG PO DAILY for health for 30 Days, # 30 TAB Prov:Job Prince MD 06/22/17 Trazodone (Trazodone) 50 Mg Tab, 50 MG PO HS Y for INSOMNIA for 15 Days, #15 TAB Prov:Job Prince MD 06/22/17 Sertraline (Sertraline) 100 Mg Tab, 100 MG PO DAILY for health, #30 TAB 0 Refills Prov:Job Prince MD 06/22/17 Clonazepam (Klonopin) 0.5 Mg Tab, 0.5 MG PO Q12HR for health for 30 Days, TAB Prov:Job Prince MD 06/22/17 Warfarin (Coumadin) 5 Mg Tab, 5 MG PO DAILY@1600 for health for 30 Days, #30 TAB Prov:Job Prince MD 06/22/17 Reported Medications Warfarin (Warfarin) 2.5 Mg Tab, 2.5 MG PO DAILY for Blood Clot Prevention, #30 TAB 0 Refills 06/15/17 Discontinued Scripts Famotidine (Pepcid) 20 Mg Tab, 20 MG PO BID, #60 TAB 0 Refills Prov:Román Reddy MD 09/14/17 Sucralfate (Carafate) 1 Gram Tab, 1 GM PO QID for Ulcer Prevention, #120 TAB 0 Refills On empty stomach Prov:Román Reddy MD 09/14/17 Current Medications Medications (Trade) Dose Ordered Sig/Edward Route Start Time Stop Time Status Last Admin (Ativan) 1 mg Q6H PRN PO 09/15/17 17:15 UNV (Ativan Inj) 1 mg Q6H PRN IM 09/15/17 17:15 UNV (Benadryl) 50 mg Q6H PRN PO 09/15/17 17:15 UNV (Benadryl Inj) 50 mg Q6H PRN IM 09/15/17 17:15 UNV (Benadryl Inj) 50 mg HS PRN IM 09/15/17 17:15 UNV (Tylenol) 650 mg Q4H PRN PO 09/15/17 17:15 UNV (Milk Of Magnesia Liq) 30 ml DAILY PRN PO 09/15/17 17:15 UNV (Mag-Al Plus Susp Liq) 30 ml Q6H PRN PO 09/15/17 17:15 UNV (KlonoPIN) 0.5 mg Q12HR PO 09/15/17 21:00 UNV (Protonix) 40 mg DAILY PO 09/16/17 09:00 UNV (Zoloft) 100 mg DAILY PO 09/16/17 09:00 UNV (Coumadin) 2.5 mg DAILY PO 09/16/17 09:00 UNV (Coumadin) 5 mg DAILY@1600 PO 09/16/17 16:00 UNV Family Psych History Denied for mental illness according to the patient. Social History Patient lives with her 17-year-old son. She is not currently working. She denies a history of alcoholism and substance abuse. Her lives elsewhere. Her 18-year-old daughter lives elsewhere. The family is supportive and concerned. They indicate they have not seen there mother/ behave like this. Patient's Strengths (min. 2) verbal and has access to health care. Physical Exam GENERAL: SKIN: Warm and dry. HEAD: Normocephalic. EYES: No scleral icterus. No injection or drainage. NECK: Supple, trachea midline. No JVD or lymphadenopathy. CARDIOVASCULAR: Regular rate and rhythm without murmurs, gallops, or rubs. RESPIRATORY: Breath sounds equal bilaterally. No accessory muscle use. GASTROINTESTINAL: Abdomen soft, non-tender, nondistended. MUSCULOSKELETAL: No cyanosis, or edema. BACK: Nontender without obvious deformity. No CVA tenderness. Vital Signs Vital Signs Date Time Temp Pulse Resp B/P (MAP) Pulse Ox O2 Delivery O2 Flow Rate FiO2 09/15/17 04:10 98.7 71 16 112/71 (85) 98 Room Air Mental Status Examination Appearance: Appropriate Consciousness: Alert Orientation: x4 Motor Activity: Normal gait Speech: Unremarkable Language: Adequate Fund of Knowledge: Adequate Attention and Concentration: Easily Distracted Memory: Unremarkable Mood: Angry Affect: Irritable Thought Process & Associations: Intact Thought Content: Delusional Hallucination Type: None Delusion Type: None, Paranoid Suicidal Ideation: Yes Suicidal Plan: Yes Suicidal Intention: Yes Homicidal Ideation: No Homicidal Plan: No Homicidal Intention: No Insight: Adequate Judgment: Adequate Assessment & Plan Problem List: (1) Brief psychotic disorder ICD Codes: F23 - Brief psychotic disorder Assessment & Plan Estimated LOS: days. 47-year-old female who has been to the emergency department under a Brooks act twice in the last 24 hours. On both occasions she was allegedly threatening to harm herself with a knife. She is denying this behavior once again but her daughter confirms it. Her family feels the patient is acting erratically. Upon interview, the patient certainly admits to paranoid delusions. These reasons, this physician is admitting the patient. This physician has ordered a CBC and comprehensive metabolic panel to determine if any infectious process or metabolic process is causing or contributing to the patient's delusions and behavioral problems. Additionally, I have ordered a thyroid-stimulating hormone level, vitamin B 12 level and vitamin D level, again to determine if any deficiency in these areas is causing or contributing to the patient's paranoia and behavioral problems. Furthermore, this physician has ordered a hep us consult as the patient is on anticoagulant therapy. Additionally, this physician has ordered an EKG to determine the patient's cardiac conduction status prior to starting significant psychotropic medicines which might adversely effect the electrical system of her heart. This physician spoke to the patient's nurse, Abraham, regarding her recent behavior. Case management will also be involved to assist with information gathering and disposition planning. Darien Holm MD Sep 15, 2017 17:17
[2017-09-15] MEDS: clonazePAM 0.5 MG TAB PO SCH (21:39)
[2017-09-15 23:01] VITALS: BP 134/59; PULSE 76; RESP 16; TEMP 98.4; O2SAT 96
[2017-09-16] MEDS: clonazePAM 0.5 MG TAB PO SCH ×2 (08:43→21:42)
[2017-09-16] MEDS: PANTOPRAZOLE SOD 40 MG DELAYED RELEASE TAB PO SCH (08:43)
[2017-09-16] MEDS ORDERED: SERTRALINE HCL 100 MG TAB PO SCH (09:00)
--- NOTE | 2017-09-16 12:41 | HHI.PYPN ---
Subjective Remarks The patient is a 47 years old [place] woman, domiciled with her daughter, unemployed, on SSI, with psychiatric history of depression, 1 previous psychiatric hospitalization in 2017 here in [place], medical history of DVT, who was hospitalized due to a suicidal gesture and symptoms of depression. On psychiatric reevaluation today patient is found sleeping, she reports she has been feeling very depressed and lonely, frustrated and have them multiple altercations with her daughter. She says that she was very upset after the last altercation that she had with her daughter she just tried to commit suicide by cutting her neck. She reports depressive symptoms, frequent mood swings, frustration, of worthlessness, hopelessness, helplessness and no enjoying life. She denies visual and auditory hallucinations at this moment. No paranoia, loosening of associations or disorganized speech or behavior present at this moment. Mental Status Examination Appearance: Appropriate Consciousness: Alert Orientation: x4 Motor Activity: Normal gait Speech: Unremarkable Language: Adequate Fund of Knowledge: Adequate Attention and Concentration: Adequate Memory: Unremarkable Mood: Angry Affect: Irritable Thought Process & Associations: Intact Thought Content: Delusional Hallucination Type: None Delusion Type: None, Paranoid Suicidal Ideation: Yes Suicidal Plan: No Suicidal Intention: No Homicidal Ideation: No Homicidal Plan: No Homicidal Intention: No Insight: Adequate Judgment: Adequate Results Vitals/IOs Vital Signs Date Time Temp Pulse Resp B/P (MAP) Pulse Ox O2 Delivery O2 Flow Rate FiO2 09/15/17 23:01 98.4 76 16 134/59 (84) 96 09/15/17 04:10 Room Air Assessment & Plan Problem List: (1) Brief psychotic disorder ICD Codes: F23 - Brief psychotic disorder (2) Adjustment disorder ICD Codes: F43.20 - Adjustment disorder, unspecified Assessment & Plan: We'll start Zoloft 25 mg for depression. Continue CIWA. Consult psychiatry for second opinion. Part to psychotherapy and motivation provided. Vital signs and labs reviewed. Hospitalist consult pending. Assessment & Plan Estimated LOS: days Justification for Cont. Inpt. Patient needs to continue psychiatric hospitalization for stabilization. Jeff Lechuga MD Sep 16, 2017 12:41
[2017-09-16] MEDS ORDERED: PILL SPLITTER OTHER PRN (12:45)
--- NOTE | 2017-09-16 14:13 | PD.CONS ---
[facility] [place] [facility] By Psychiatry team, Dr. Holm Reason for Consult Assist with medical management, history of DVT Primary Care Physician Unknown Diagnoses: History of Present Illness Patient is a 47-year-old female with primary medical history of DVT, hiatal hernia, anxiety, depression who came into the hospital under [place] act by the police department secondary to suicidal ideation. Patient states that she came into the hospital because she was Brooks acted and that she says that she cannot cope with her stressors the outside. She states she had suicidal ideation prior to coming to the hospital but not now. Denies any homicidal ideation. Patient reports DVT on her right lower extremity that has been ongoing for a year now and she has been on Coumadin. States she is being followed by collar setter in [place] but right now she cannot remember the name of the doctor. States she does not know why she is not on Eliquis or Xarelto she thinks she is allergic to it but is unsure. Reports her primary care doctor is looking at her having hypothyroidism but she is not on any medications yet. States that she is being monitored for it. Reports hypocalcemia but does not know why. States she is still feeling depressed as of now it otherwise she denies any chest pain, palpitations, headache, dizziness, shortness of breath or dyspnea. Denies any fevers, chills, nausea, vomiting, diarrhea. Denies any dysuria. Review of Systems Except as stated in HPI: all other systems reviewed are Neg Past Family Social History Allergies: Coded Allergies: Iodinated Contrast- Oral and IV Dye (Verified Allergy, Severe, 09/15/17) iodine (Verified Allergy, Severe, 09/15/17) Past Medical History DVT, right lower extremity on Coumadin Hiatal hernia Anxiety and depression Questionable hypocalcemia Questionable hypothyroidism Past Surgical History Tubal ligation Cholecystectomy Hysterectomy Right knee surgery Right eye surgery for lazy eye Reported Medications Reported Meds & Active Scripts Active Pantoprazole (Pantoprazole Sodium) 40 Mg Tab 40 Mg PO DAILY 30 Days Trazodone (Trazodone HCl) 50 Mg Tab 50 Mg PO HS PRN 15 Days Sertraline (Sertraline HCl) 100 Mg Tab 100 Mg PO DAILY Klonopin (Clonazepam) 0.5 Mg Tab 0.5 Mg PO Q12HR 30 Days Coumadin (Warfarin) 5 Mg Tab 5 Mg PO DAILY@1600 30 Days Reported Warfarin 2.5 Mg Tab 2.5 Mg PO DAILY Active Ordered Medications Current Medications Medications (Trade) Dose Ordered Sig/Edward Route Start Time Stop Time Status Last Admin (Ativan) 1 mg Q6H PRN PO 09/15/17 17:15 (Ativan Inj) 1 mg Q6H PRN IM 09/15/17 17:15 (Benadryl) 50 mg Q6H PRN PO 09/15/17 17:15 (Benadryl Inj) 50 mg Q6H PRN IM 09/15/17 17:15 (Benadryl Inj) 50 mg HS PRN IM 09/15/17 17:15 (Tylenol) 650 mg Q4H PRN PO 09/15/17 17:15 (Milk Of Magnesia Liq) 30 ml DAILY PRN PO 09/15/17 17:15 (Mag-Al Plus Susp Liq) 30 ml Q6H PRN PO 09/15/17 17:15 (KlonoPIN) 0.5 mg Q12HR PO 09/15/17 21:00 09/16/17 08:43 (Protonix) 40 mg DAILY PO 09/16/17 09:00 09/16/17 08:43 (Coumadin) 5 mg DAILY@1600 PO 09/16/17 16:00 (Coumadin Booklet) 1 ONCE ONCE OTHER 09/16/17 16:00 09/16/17 16:01 Pharmacy Profile Note 0 ml @ 0 mls/hr UNSCH OTHER 09/16/17 08:30 (Zoloft) 25 mg DAILY PO 09/17/17 09:00 (Pill Splitter) 1 ea UNSCH PRN OTHER 09/16/17 12:45 Family History States father had a heart attack at age of 60 Mother has high cholesterol Social History Drinks alcohol occasionally 1-2 per week Smoking 4 cigarettes a day Denies illicit drug use Physical Exam Vital Signs Vital Signs Date Time Temp Pulse Resp B/P (MAP) Pulse Ox O2 Delivery O2 Flow Rate FiO2 09/15/17 23:01 98.4 76 16 134/59 (84) 96 09/15/17 18:43 Physical Exam GENERAL: This is an obese, well-developed patient, in no apparent distress. SKIN: No rashes, ecchymoses or lesions. Cool and dry. HEAD: Normocephalic. No temporal or scalp tenderness. EYES: Right eye smaller than left. No scleral icterus. No injection or drainage. ENT: Nose without bleeding. Throat without erythema. Uvula midline. Airway patent. NECK: Trachea midline. No JVD or lymphadenopathy. Supple, nontender, no meningeal signs. CARDIOVASCULAR: Regular rate and rhythm without murmurs, gallops, or rubs. RESPIRATORY: Clear to auscultation. Breath sounds equal bilaterally. No wheezes , rales, or rhonchi. GASTROINTESTINAL: Abdomen soft, non-tender, nondistended. Bowel sounds active 4. MUSCULOSKELETAL: Extremities without clubbing, cyanosis. Right lower extremity trace edema. NEUROLOGICAL: Awake and alert. Cranial nerves II through XII intact. Motor and sensory grossly within normal limits. Normal speech. Assessment and Plan Problem List: (1) DVT (deep venous thrombosis) ICD Code: I82.409 - Acute embolism and thrombosis of unspecified deep veins of unspecified lower extremity (2) Adjustment disorder ICD Code: F43.20 - Adjustment disorder, unspecified (3) Depression ICD Code: F32.9 - Major depressive disorder, single episode, unspecified Status: Acute Assessment and Plan Patient is a 47-year-old female with primary medical history of DVT, hiatal hernia, anxiety, depression who came into the hospital under [place] act by the police department secondary to suicidal ideation. Depression, anxiety, suicidal ideation - Managed by psychiatry team DVT, RLE - Continue Coumadin. Monitor INR. - Recent INR subtherapeutic - Adjust dose as necessary - Patient to follow with collar setter in outpatient and discharged Hiatal hernia - Continue pantoprazole Questionable hypothyroidism - TSH within normal 0.525 (06/16/17) - Recheck TSH Tobacco use - Counseled - Declines nicotine patch No evidence of hypocalcemia DVT prop continue with Coumadin - Code Status Full code Discussed Condition With Patient, nursing Ventura Huber Sep 16, 2017 14:13
[2017-09-16] MEDS: WARFARIN SOD 5 MG TAB PO SCH (15:49)
[2017-09-16] MEDS ORDERED: WARFARIN SOD 2.5 MG TAB PO SCH (16:00)
--- NOTE | 2017-09-16 17:21 | PD.PSY.CON ---
Provisional Diagnosis Admission Date Sep 15, 2017 at 17:07 [place]. Brief psychotic disorder History of Present Illness Service Psychiatry Consult Requested By Dr. Lechuga Reason for Consult Second opinion Primary Care Physician Unknown HPI 47-year-old female presents under a Brooks act for the second day in a row allegedly threatening to harm herself with a knife. On this occasion, law enforcement was called by the patient's daughter. According to the Brooks act, the patient placed a knife to her arm like she was going to cut herself today. Thursday attempted to contact her, she locked herself in her bedroom with a knife. She told the law enforcement officers if they did not leave she was going to hurt herself. She also indicated the presence of law enforcement officers made her want to hurt herself even more. Upon interview, the patient denies holding a knife to her arm. She denies being suicidal or holding a knife to her arm yesterday. However, she does admit to feeling as if people are trying to harm her. She also feels people are driving around her neighborhood, looking at her. She states when she goes out in public, people look at her and then use their cell phone to text other people about her. This physician spoke with the patient's nurse, Abraham, who called the patient's adult daughter and verified that the patient held a knife to her arm and threatened to harm herself. The patient reports she has been carrying a knife in her purse for the last 6 months because she is afraid of people trying to harm her. Patient's toxicology screen is negative. 09/16/17 - Second opinion Patient seen for second opinion, patient is a 47-year-old woman, currently going to divorce, unemployed, with a past psychiatric history of depression, 1 previous psychiatric hospitalization, past medical history of DVT, was brought in under Brooks act due to suicidal ideations in the context of worsening depression and psychosocial stressors. Patient was found lying in hospital bed, cooperative interview today. Patient states that she's been feeling depressed lately she is getting and losing her residence. Patient states that her daughter had called police when she was locked in her room. Patient reports that she keeps a knife in her backpack and she has been having paranoid ideations that people are been following her but states that "there is an investigation on me by the government was ". Patient states that she has seen people taking that her license plates when she drives. Patient also reporting suicidal ideations for the past week with no plan and she has been feeling overwhelmed with the stressors. Currently she reports feeling okay , Effexor safety here in the unit denies any suicidal ideations at this time denies any HI, denies any perceptual disturbances but continues with paranoid ideation when "I'm out by myself or when people are in my car". Past Family Social History Coded Allergies: Iodinated Contrast- Oral and IV Dye (Verified Allergy, Severe, 09/15/17) iodine (Verified Allergy, Severe, 09/15/17) Active Scripts Pantoprazole (Pantoprazole) 40 Mg Tab, 40 MG PO DAILY for health for 30 Days, # 30 TAB Prov:Job Prince MD 06/22/17 Trazodone (Trazodone) 50 Mg Tab, 50 MG PO HS Y for INSOMNIA for 15 Days, #15 TAB Prov:Job Prince MD 06/22/17 Sertraline (Sertraline) 100 Mg Tab, 100 MG PO DAILY for health, #30 TAB 0 Refills Prov:Job Prince MD 06/22/17 Clonazepam (Klonopin) 0.5 Mg Tab, 0.5 MG PO Q12HR for health for 30 Days, TAB Prov:Job Prince MD 06/22/17 Warfarin (Coumadin) 5 Mg Tab, 5 MG PO DAILY@1600 for health for 30 Days, #30 TAB Prov:Job Prince MD 06/22/17 Reported Medications Warfarin (Warfarin) 2.5 Mg Tab, 2.5 MG PO DAILY for Blood Clot Prevention, #30 TAB 0 Refills 06/15/17 Discontinued Scripts Famotidine (Pepcid) 20 Mg Tab, 20 MG PO BID, #60 TAB 0 Refills Prov:Román Reddy MD 09/14/17 Sucralfate (Carafate) 1 Gram Tab, 1 GM PO QID for Ulcer Prevention, #120 TAB 0 Refills On empty stomach Prov:Román Reddy MD 09/14/17 Current Medications Medications (Trade) Dose Ordered Sig/Edward Route Start Time Stop Time Status Last Admin (Ativan) 1 mg Q6H PRN PO 09/15/17 17:15 (Ativan Inj) 1 mg Q6H PRN IM 09/15/17 17:15 (Benadryl) 50 mg Q6H PRN PO 09/15/17 17:15 (Benadryl Inj) 50 mg Q6H PRN IM 09/15/17 17:15 (Benadryl Inj) 50 mg HS PRN IM 09/15/17 17:15 (Tylenol) 650 mg Q4H PRN PO 09/15/17 17:15 (Milk Of Magnesia Liq) 30 ml DAILY PRN PO 09/15/17 17:15 (Mag-Al Plus Susp Liq) 30 ml Q6H PRN PO 09/15/17 17:15 (KlonoPIN) 0.5 mg Q12HR PO 09/15/17 21:00 09/16/17 08:43 (Protonix) 40 mg DAILY PO 09/16/17 09:00 09/16/17 08:43 (Coumadin) 5 mg DAILY@1600 PO 09/16/17 16:00 09/16/17 15:49 Pharmacy Profile Note 0 ml @ 0 mls/hr UNSCH OTHER 09/16/17 08:30 (Zoloft) 25 mg DAILY PO 09/17/17 09:00 (Pill Splitter) 1 ea UNSCH PRN OTHER 09/16/17 12:45 Patient's Strengths (min. 2) verbal and has access to health care. Physical Exam Vital Signs Vital Signs Date Time Temp Pulse Resp B/P (MAP) Pulse Ox O2 Delivery O2 Flow Rate FiO2 09/15/17 23:01 98.4 76 16 134/59 (84) 96 09/15/17 04:10 Room Air Mental Status Examination Appearance: Appropriate Consciousness: Alert Orientation: x4 Motor Activity: Normal gait Speech: Unremarkable Language: Adequate Fund of Knowledge: Adequate Attention and Concentration: Adequate Memory: Unremarkable Mood: Sad, Anxious Affect: Sad, Anxious, Other (tearful at times during interview) Thought Process & Associations: Intact Thought Content: Delusional Hallucination Type: None Delusion Type: None, Paranoid, Other (persecutory) Suicidal Ideation: Yes Suicidal Plan: No Suicidal Intention: No Homicidal Ideation: No Homicidal Plan: No Homicidal Intention: No Insight: Adequate Judgment: Adequate Assessment & Plan Problem List: (1) Brief psychotic disorder ICD Codes: F23 - Brief psychotic disorder (2) Adjustment disorder ICD Codes: F43.20 - Adjustment disorder, unspecified Assessment & Plan Patient initially seen by Dr. Darien Holm with follow up evaluation by Dr. Lechuga; reviewed and agreed with. Dr. Lechuga has signed first opinion petition supporting [employer] act. I agree. Patient meets criteria for involuntary psychiatric hospitalization under the Brooks act thus will cosign second opinion petition supporting Brooks act. Consult appreciated. Job Prince MD Sep 16, 2017 17:21
[2017-09-16 18:10] VITALS: BP 134/73; PULSE 75; RESP 16; TEMP 98.4; O2SAT 95
--- NOTE | 2017-09-16 21:02 | EKG ---
Date Performed: 09/16/2017 Time Performed: 08:41:53 PTAGE: 47 years EKG: Sinus rhythm NORMAL ECG Compared to prior tracing no significant change DOCTOR: Power Alba Interpretating Date/Time 09/16/2017 21:01:07
[2017-09-17 05:27] VITALS: BP 114/64; PULSE 71; RESP 18; TEMP 97.9; O2SAT 97
[2017-09-17] MEDS: PANTOPRAZOLE SOD 40 MG DELAYED RELEASE TAB PO SCH (08:10)
[2017-09-17] MEDS: clonazePAM 0.5 MG TAB PO SCH ×2 (08:10→21:11)
[2017-09-17] MEDS ORDERED: SERTRALINE HCL 50 MG TAB PO SCH (09:00)
[2017-09-17] MEDS ORDERED: ONDANSETRON ODT 4 MG TAB PO PRN (12:00)
--- NOTE | 2017-09-17 12:06 | HHI.PR ---
Subjective Remarks Follow-up visit for history of DVT, and hiatal hernia. Patient seen and examined in her room lying in bed covered with her bed sheets. Spoke with nurse who states patient refused lab work this morning, and wants to go home. Patient is awake and alert, requesting to go home. Patient states that every time she comes here things are worse, she gets tearful and begins to cry. She denies any nausea, vomiting, endorses epigastric pain. She states that she has a hiatal hernia, pain is unchanged from what she normally has. Asked when was last time she saw a GI doctor and states it's been a while. Reports 2 episodes of diarrhea yesterday, none this morning. Denies fevers, chills, headaches, shortness of breath or chest pains. Objective Vitals Vital Signs Date Time Temp Pulse Resp B/P (MAP) Pulse Ox O2 Delivery O2 Flow Rate FiO2 09/17/17 05:27 97.9 71 18 114/64 (81) 97 09/16/17 18:10 98.4 75 16 134/73 (93) 95 Objective Remarks GENERAL: This is an obese, well-developed patient, in no apparent distress. SKIN: Cool and dry. HEAD: Normocephalic. EYES: Right eye smaller than left. No scleral icterus. No injection or drainage. ENT: Nose without bleeding. Airway patent. NECK: Trachea midline. CARDIOVASCULAR: Regular rate and rhythm without murmurs, gallops, or rubs. RESPIRATORY: Clear to auscultation. Breath sounds equal bilaterally. No wheezes , rales, or rhonchi. GASTROINTESTINAL: Abdomen soft, mild tenderness with epigastric palpation, nondistended. Bowel sounds active 4. MUSCULOSKELETAL: Extremities without clubbing, cyanosis. Right lower extremity trace edema, difficult to tell if this is worsened, due to habitus.. NEUROLOGICAL: Awake and alert. Oriented 3, cranial nerves grossly intact. Motor and sensory grossly within normal limits. Normal speech. A/P Problem List: (1) DVT (deep venous thrombosis) ICD Code: I82.409 - Acute embolism and thrombosis of unspecified deep veins of unspecified lower extremity (2) Adjustment disorder ICD Code: F43.20 - Adjustment disorder, unspecified (3) Depression ICD Code: F32.9 - Major depressive disorder, single episode, unspecified Status: Acute Assessment and Plan Patient is a 47-year-old female with primary medical history of DVT, hiatal hernia, anxiety, depression who came into the hospital under [place] act by the police department secondary to suicidal ideation. Depression, anxiety, suicidal ideation - Managed by psychiatry team DVT, RLE - Continue Coumadin. Monitor INR. - Recent INR subtherapeutic - Patient refused lab work this morning, discussed with her the importance of labs. She is agreeable to labwork with butterfly needle, discussed with nurse to please call lab for lab collection. - Adjust dose as necessary - Patient to follow with specification writer in outpatient on discharged Hiatal hernia - Continue pantoprazole - Complaints to nurse of nausea, will add Zofran as needed Diarrhea - Patient reports 2 episodes of diarrhea, none this morning. - Continue to monitor for now, we'll consider collecting stool for testing if diarrhea continues. Questionable hypothyroidism - TSH within normal 0.525 (06/16/17) - Recheck TSH Tobacco use - Counseled - Declined nicotine patch DVT prop continue with Coumadin Plan discussed with patient and nurse. Chucky Yates Sep 17, 2017 12:06
--- NOTE | 2017-09-17 13:33 | HHI.PYPN ---
Subjective Remarks The patient was seen today for psychiatric reevaluation. Patient was in her room, guarded, oppositional, irritable, stating that she does not want to be here anymore. She starts crying during the evaluation, she is states that she did not intend to kill herself, but she doesn't want to , but reports that she is sad, I just don't want to do anything". Patient has been isolated in the unit, participating poorly in activities, interacting minimally with peers and staff. She has been compliant her medications, no significant side effects. Review of Systems Except as stated in HPI: all other systems reviewed are Neg Mental Status Examination Appearance: Appropriate Consciousness: Alert Orientation: x4 Motor Activity: Normal gait Speech: Unremarkable Language: Adequate Fund of Knowledge: Adequate Attention and Concentration: Adequate Memory: Unremarkable Mood: Sad, Irritable Affect: Sad, Anxious, Other (tearful at times during interview) Thought Process & Associations: Intact Thought Content: Delusional Hallucination Type: None Delusion Type: None, Paranoid, Other (persecutory) Suicidal Ideation: Yes Suicidal Plan: No Suicidal Intention: No Homicidal Ideation: No Homicidal Plan: No Homicidal Intention: No Insight: Adequate Judgment: Adequate Results Vitals/IOs Vital Signs Date Time Temp Pulse Resp B/P (MAP) Pulse Ox O2 Delivery O2 Flow Rate FiO2 09/17/17 05:27 97.9 71 18 114/64 (81) 97 09/15/17 04:10 Room Air Assessment & Plan Problem List: (1) Brief psychotic disorder ICD Codes: F23 - Brief psychotic disorder (2) Adjustment disorder ICD Codes: F43.20 - Adjustment disorder, unspecified Assessment & Plan: Patient shows symptoms of depression. She is tearful, irritable, poorly cooperative, refuses to elaborate about recent suicidal statement. We will increase Zoloft to 50 mg daily. Brief supportive psychotherapy provided. Assessment & Plan Estimated LOS: days Justification for Cont. Inpt. Patient needs to continue psychiatric hospitalization for stabilization and safety. Jeff Lechuga MD Sep 17, 2017 13:32
[2017-09-17] MEDS: WARFARIN SOD 5 MG TAB PO SCH (16:29)
[2017-09-17 18:09] VITALS: BP 138/65; PULSE 80; RESP 17; TEMP 98.3; O2SAT 98
[2017-09-18 05:40] VITALS: BP 99/54; RESP 18; TEMP 97.7
[2017-09-18] MEDS: PANTOPRAZOLE SOD 40 MG DELAYED RELEASE TAB PO SCH (08:52)
[2017-09-18] MEDS: clonazePAM 0.5 MG TAB PO SCH (08:52)
[2017-09-18] MEDS ORDERED: SERTRALINE HCL 50 MG TAB PO SCH (09:00)
[2017-09-18] MEDS ORDERED: SERT-129 PO (11:17)
[2017-09-18] MEDS ORDERED: COUM5TAB PO (11:17)
[2017-09-18] MEDS ORDERED: PANT40TA3 PO (11:18)
--- NOTE | 2017-09-18 11:23 | HHI.DS ---
Psychiatry Discharge Summary Inpatient Psychiatric care?: Yes Advance Directive: No Reason Not Provided: pending Mental Health AdvanceDirective: Yes (pending) Name and Number: Juarez Dobbs, dad, Health Care Proxy: Yes (pending) Admission Admission Date Sep 15, 2017 at 17:07 Admission Diagnosis: (1) Major depressive disorder, single episode, severe without psychotic features ICD Code: F32.2 - Major depressive disorder, single episode, severe without psychotic features Brief History 47-year-old female presents under a Brooks act for the second day in a row allegedly threatening to harm herself with a knife. On this occasion, law enforcement was called by the patient's daughter. According to the Brooks act, the patient placed a knife to her arm like she was going to cut herself today. Thursday attempted to contact her, she locked herself in her bedroom with a knife. She told the law enforcement officers if they did not leave she was going to hurt herself. She also indicated the presence of law enforcement officers made her want to hurt herself even more. Upon interview, the patient denies holding a knife to her arm. She denies being suicidal or holding a knife to her arm yesterday. However, she does admit to feeling as if people are trying to harm her. She also feels people are driving around her neighborhood, looking at her. She states when she goes out in public, people look at her and then use their cell phone to text other people about her. This physician spoke with the patient's nurse, Abraham, who called the patient's adult daughter and verified that the patient held a knife to her arm and threatened to harm herself. The patient reports she has been carrying a knife in her purse for the last 6 months because she is afraid of people trying to harm her. Patient's toxicology screen is negative. 09/16/17 - Second opinion Patient seen for second opinion, patient is a 47-year-old woman, currently going to divorce, unemployed, with a past psychiatric history of depression, 1 previous psychiatric hospitalization, past medical history of DVT, was brought in under Brooks act due to suicidal ideations in the context of worsening depression and psychosocial stressors. Patient was found lying in hospital bed, cooperative interview today. Patient states that she's been feeling depressed lately she is getting and losing her residence. Patient states that her daughter had called police when she was locked in her room. Patient reports that she keeps a knife in her backpack and she has been having paranoid ideations that people are been following her but states that "there is an investigation on me by the government was ". Patient states that she has seen people taking that her license plates when she drives. Patient also reporting suicidal ideations for the past week with no plan and she has been feeling overwhelmed with the stressors. Currently she reports feeling okay , Effexor safety here in the unit denies any suicidal ideations at this time denies any HI, denies any perceptual disturbances but continues with paranoid ideation when "I'm out by myself or when people are in my car". Tobacco Use In Past 30 Days: 5 or More Cigarettes/Day Alcohol Use: 2-4 Times Per Month Hospital Course Patient was admitted in the psychiatric unit after allegedly threatening to commit suicide with a knife. Psychiatric and psychosocial assessment were completed. Safety measures taken. Patient was restarted in Zoloft and clonazepam 0.5 mg twice a day for depression and anxiety. Medications were titrated as needed. At the beginning of the hospitalization patient was endorsing depression, frustration, she was seclusive, isolated, irritable. With the days patient became more interactive, she was compliant with medications, no somatic and side effects. She is started to be more engageable , interactive appropriate with groups and peers, and little by little returned to her baseline. At the moment of discharge the patient is a good mood, denies depression, denies anxiety, denies marcus, denies suicidal and homicidal ideation , denies visual and auditory hallucinations. Was widely educated about the importance of taking her medications, and compliant with follow-ups and avoiding alcohol and psychoactive illegal drugs Results Blood Pressure 99 / 54 Vital Signs Date Time Temp Pulse Resp B/P (MAP) Pulse Ox O2 Delivery O2 Flow Rate FiO2 09/18/17 05:40 97.7 18 99/54 (69) 09/17/17 18:09 80 98 09/15/17 04:10 Room Air Reviewed Summary of Procedures Non-procedures Pending results at discharge: No Medications # of Antipsychotic meds at D/C: 0 Approp Antipsych med options 1 - Minimum of three failed multiple trials of monotherapy. 2 - Documented plan to taper to monotherapy due to previous use of multiple meds OR cross-taper in progress at D/C. 3 - Documentation of augmentation of Clozapine. 4 - Justification other than those listed in allowable values 1-3, document here : Discharge Discharge Date: Sep 18, 2017 Discharge Diagnosis: (1) Major depressive disorder, single episode, severe without psychotic features ICD Code: F32.2 - Major depressive disorder, single episode, severe without psychotic features Pt Condition on Discharge: Stable Discharge Disposition: Discharge Home Discharge Instructions Diet Instructions: As Tolerated, No Restrictions Activities you can perform: Regular-No Restrictions Scheduled Appointment: Discharge Time > 30 minutes Mental Status Examination Appearance: Appropriate Consciousness: Alert Orientation: x4 Motor Activity: Normal gait Speech: Unremarkable Language: Adequate Fund of Knowledge: Adequate Attention and Concentration: Adequate Memory: Unremarkable Mood: Sad, Irritable Affect: Sad, Anxious, Other (tearful at times during interview) Thought Process & Associations: Intact Thought Content: Delusional Hallucination Type: None Delusion Type: None, Paranoid, Other (persecutory) Suicidal Ideation: Yes Suicidal Plan: No Suicidal Intention: No Homicidal Ideation: No Homicidal Plan: No Homicidal Intention: No Insight: Adequate Judgment: Adequate Discharge/Advance Care Plan Health Problems: (1) Brief psychotic disorder (2) Adjustment disorder Goals to promote your health * To prevent worsening of your condition and complications * To maintain your health at the optimal level Directions to meet your goals Take your medications as prescribed Follow your dietary instruction Follow activity as directed Keep your appointments as scheduled Take your immunizations and boosters as scheduled If your symptoms worsen call your PCP, if no PCP go to Urgent Care Center or Emergency Room For 30/03 questions related to your inpatient stay or results of tests pending at discharge, please contact Dr. Jeff Lechuga at Smoking is Dangerous to Your Health. Avoid second hand smoking Jeff Lechuga MD Sep 18, 2017 11:23
--- NOTE | 2017-09-18 11:46 | HHI.PR ---
Subjective Remarks Follow-up visit for history of DVT, and hiatal hernia. Patient seen and examined in her bedroom resting comfortably. Spoke with nurses states she will be discharge today. She denies any fevers, chills, nausea, vomiting, diarrhea. Discussed with patient that she will need to follow-up with PCP to have INR checked as her INR checked here on 09/14 was subtherapeutic. Patient voices understanding, no acute concerns. Objective Vitals Vital Signs Date Time Temp Pulse Resp B/P (MAP) Pulse Ox O2 Delivery O2 Flow Rate FiO2 09/18/17 05:40 97.7 18 99/54 (69) 09/17/17 18:09 98.3 80 17 138/65 (89) 98 Objective Remarks GENERAL: This is an obese, well-developed patient, in no apparent distress. SKIN: Cool and dry. HEAD: Normocephalic. EYES: Right eye smaller than left. No scleral icterus. No injection or drainage. ENT: Nose without bleeding. Airway patent. NECK: Trachea midline. CARDIOVASCULAR: Regular rate and rhythm without murmurs, gallops, or rubs. RESPIRATORY: Clear to auscultation. Breath sounds equal bilaterally. No wheezes , rales, or rhonchi. GASTROINTESTINAL: Abdomen soft, mild tenderness with epigastric palpation, nondistended. Bowel sounds active 4. MUSCULOSKELETAL: Extremities without clubbing, cyanosis. Right lower extremity trace edema, difficult to tell if this is worsened, due to habitus.. NEUROLOGICAL: Awake and alert. Oriented 3, cranial nerves grossly intact. Motor and sensory grossly within normal limits. Normal speech. A/P Problem List: (1) DVT (deep venous thrombosis) ICD Code: I82.409 - Acute embolism and thrombosis of unspecified deep veins of unspecified lower extremity (2) Adjustment disorder ICD Code: F43.20 - Adjustment disorder, unspecified (3) Depression ICD Code: F32.9 - Major depressive disorder, single episode, unspecified Status: Acute Assessment and Plan Patient is a 47-year-old female with primary medical history of DVT, hiatal hernia, anxiety, depression who came into the hospital under Brooks act by the police department secondary to suicidal ideation. Depression, anxiety, suicidal ideation - Managed by psychiatry team - Patient will be discharged today DVT, RLE - Continue Coumadin. INR checked on 09/14/17 was 1.1, subtherapeutic. Patient has refused lab work. - Discussed with patient she will need to follow with front office specialist or PCP on outpatient basis. Reiterated the importance of following up on lab work. Hiatal hernia - Continue pantoprazole - Denies nausea or vomiting. Diarrhea -Resolved no reported diarrhea overnight or today. Questionable hypothyroidism - TSH within normal 0.525 (06/16/17) -Follow-up as outpatient. Tobacco use - Counseled - Declined nicotine patch DVT prop continue with Coumadin Patient will be discharged today. Problem Qualifiers (1) DVT (deep venous thrombosis): Qualified Codes: I82.409 - Acute embolism and thrombosis of unspecified deep veins of unspecified lower extremity Chucky Yates Sep 18, 2017 11:46
== END 2017-09-18 12:35 | disposition home or self-care (01) | DRG 885 ==
LOC: NEPD 03:51 → NEDA 17:07 → H260 18:55
PROVIDERS: ADMIT Psychiatry & Neurology Psychiatry; ATTEND Psychiatry & Neurology Psychiatry
DX: F32.2 Major depressive disorder, single episode, severe without psychotic features (principal); E66.9 Obesity, unspecified; Z68.36 Body mass index [BMI] 36.0-36.9, adult; F17.210 Nicotine dependence, cigarettes, uncomplicated; K44.9 Diaphragmatic hernia without obstruction or gangrene; Z86.718 Personal history of other venous thrombosis and embolism; Z79.01 Long term (current) use of anticoagulants; R19.7 Diarrhea, unspecified
CPT/HCPCS: 93005; 99285

== ENCOUNTER 2017-10-29 15:06 | Emergency (ER) | payer MEDICARE, OTHER ==
[~2017-10-29 15:06] MED LIST changes: -FAMO1TAB37 PO
[2017-10-29 15:27] VITALS: BP 126/88; PULSE 70; RESP 18; TEMP 98; O2SAT 99
[2017-10-29 16:01] LABS: AUTOMATED NEUTROPHIL # 5.3 TH/MM3 (1.8-7.7); BASOPHIL # 0.1 TH/MM3 (0-0.2); EOSINOPHIL # 0.1 TH/MM3 (0-0.4); EOSINOPHIL % 1.6 % (0.0-4.0); HEMATOCRIT 41.3 % (35.0-46.0); HEMOGLOBIN 14.3 GM/DL (11.6-15.3); LYMPH % 25.4 % (9.0-44.0); LYMPHOCYTE # 2.1 TH/MM3 (1.0-4.8); MEAN CELL VOLUME 83.1 FL (80.0-100.0); MEAN CORPUSCULAR HEMOGLOBIN 28.9 PG (27.0-34.0); MEAN CORPUSCULAR HGB CONC 34.7 % (32.0-36.0); MEAN PLATELET VOLUME 9.6 FL (7.0-11.0); MONO % 7.2 % (0.0-8.0); MONOCYTE # 0.6 TH/MM3 (0-0.9); NEUT % 64.8 % (16.0-70.0); PLATELET COUNT 210 TH/MM3 (150-450); RED BLOOD COUNT 4.97 MIL/MM3 (4.00-5.30); RED CELL DISTRIBUTION WIDTH 13.4 % (11.6-17.2); WHITE BLOOD COUNT 8.2 TH/MM3 (4.0-11.0)
[2017-10-29 16:10] LABS: ALBUMIN 3.7 GM/DL (3.4-5.0); ALT (GPT) 23 U/L (10-53); AST (GOT) 20 U/L (15-37); BICARBONATE 28.8 MEQ/L (21.0-32.0); BLOOD UREA NITROGEN 10 MG/DL (7-18); CALCIUM 9.1 MG/DL (8.5-10.1); CHLORIDE 104 MEQ/L (98-107); CREATININE 0.66 MG/DL (0.50-1.00); GLOMERULAR FILTRATION RATE 96 ML/MIN (>89); GLUCOSE,RANDOM 82 MG/DL (74-106); SODIUM (NA) 138 MEQ/L (136-145)
[2017-10-29 16:12] LABS: ALKALINE PHOSPHATASE 87 U/L (45-117); TOTAL BILIRUBIN ADULT 0.7 MG/DL (0.2-1.0); TOTAL PROTEIN 7.7 GM/DL (6.4-8.2)
[2017-10-29 16:36] LABS: INTERNATIONAL NORMALIZED RATIO 1.1 RATIO
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
--- NOTE | 2017-10-29 17:10 | RADRPT ---
EXAM DATE/TIME: 10/29/2017 16:48 [facility] COMPARISON: No previous studies available for comparison. INDICATIONS : Right leg pain. MEDICAL HISTORY : Deep vein thrombosis. SURGICAL HISTORY : None. ENCOUNTER: Initial ACUITY: 1 day PAIN SCORE: 0/10 LOCATION: Right leg. TECHNIQUE: Venous ultrasound of the leg was performed from the inguinal ligament to the proximal calf. Real-jeanne e, color Doppler and spectral tracing, compression and augmentation techniques were used. FINDINGS: There is normal compressibility of the deep venous system from the inguinal region to the proximal ca lf. No echogenic clot is seen in the lumen of the common femoral, femoral, popliteal, and posterior tibial veins. There is a normal response of the venous system to proximal and distal augmentation an d respiration. CONCLUSION: 1. Negative for deep venous thrombosis. Derek Galan MD on October 29, 2017 at 17:08 Board Certified Radiologist. This report was verified electronically.
[2017-10-29 18:38] VITALS: BP 142/74; PULSE 55; RESP 20; TEMP 98; O2SAT 100
[2017-10-30 01:02] VITALS: BP 138/91; PULSE 62; RESP 18; O2SAT 97
== END 2017-10-30 02:01 ==
LOC: MERGE 15:06 → NEDAMB 15:06 → NEPJ 10-30 02:01
DX: F33.1 Major depressive disorder, recurrent, moderate (principal); M79.604 Pain in right leg
CPT/HCPCS: 80053; 85025; 85610; 93971; 99284